=== PATIENT | male | born 1955 | race Caucasian/White ===

== ENCOUNTER 2025-02-06 13:42 | Inpatient (IN) | payer OTHER, SELFPAY ==
[2025-02-03] VITALS (8 sets, daily range): BP systolic 132–142; BP diastolic 65–76
[2025-02-03 13:24] LABS: Hematocrit 47.1 % (39.0-52.0); Hemoglobin 15.7 g/dL (13.0-18.0); Mean Corp Hgb Conc. 33.3 g/dL (33.0-37.0); Mean Corpuscular Volume 86.9 fL (80.0-94.0); Nucleated Red Blood Cells % 0 % (-); Platelet Count 252 10^3/uL (130-400); Red Cell Dist. Width 13.4 % (11.5-14.5)
[2025-02-03 13:43] LABS: ALT (SGPT) 21 U/L (0-50); AST (SGOT) 21 U/L (17-59); Albumin 4.7 g/dl (3.5-5.0); Alkaline Phosphatase 67 U/L (38-126); Blood Urea Nitrogen 14 mg/dl (9-20); Calcium 9.6 mg/dl (8.4-10.2); Carbon Dioxide 27 mmol/L (22-30); Chloride 104 mmol/L (98-107); Glucose 163 mg/dl (70-99); Lipase 43 U/L (23-300); Potassium 5.5 mmol/L (3.5-5.1); Sodium 137 mmol/L (135-145); Total Protein 7.6 g/dl (6.3-8.2); eGFR > 60.00
[2025-02-03 13:51] LABS: Troponin I < 0.012 ng/ml
[2025-02-03] MEDS: TORADOL 15 MG IV (16:43)
--- NOTE | 2025-02-03 19:30 | ED.GENMED ---
History of Present Illness
General
Chief Complaint: Abdominal Symptoms
Source: patient
Time Seen by Provider: 02/03/25 15:32
History of Present Illness
History of Present Illness:
Note:
CHIEF COMPLAINT(S)
Abdominal pain, bloating.
HISTORY OF PRESENT ILLNESS
The patient is a 69-year-old male who presented with abdominal pain and a sensation of bloating that began suddenly this morning. He reports feeling well yesterday. The pain is described as tender, particularly worsened over the left lower quadrant,
with some tenderness in the right lower quadrant as well. The patient reports no blood in stools, nausea, or fever. Upon inquiry, he recalls no recent illness and denies any recent changes in his bowel habits.
The patient reports visiting urgent care earlier but no diagnosis was made. He denies any history of smoking or drug use, with minimal alcohol consumption, specifically a glass of wine every three months. He does not have a regular physician for
medical checkups and refers to a nurse for health maintenance. The patient has a known allergy to penicillin. No prior abdominal surgeries report
PAST MEDICAL AND SURGICAL HISTORY
Allergy to penicillin.
SOCIAL DETERMINANTS AFFECTING HEALTH
The patient mentioned not having a regular healthcare provider and relies on visiting a nurse for health checkups.
ALLERGIES
Penicillin.
REVIEW OF SYSTEMS
- Gastrointestinal: Reports abdominal pain and bloating. No blood in stools, nausea, or fever reported.
- Respiratory: Denies any respiratory symptoms.
- General: No recent illness, denies fever.
PHYSICAL EXAM
General: Alert, no acute distress.
Skin: Warm, dry.
Head: Normocephalic, atraumatic.
Neck: Supple, trachea midline.
Eyes, Ears, Nose, Mouth, and Throat: Oral mucosa moist.
Cardiovascular: Heart regular without murmur, normal peripheral perfusion, no edema.
Respiratory: Respirations are non-labored, lungs clear on auscultation.
Gastrointestinal: Moderate tenderness noted in the left lower quadrant, mild tenderness in the right lower quadrant, abdomen mildly distended, active bowel sounds.
Back: Normal range of motion, normal alignment.
Musculoskeletal: Normal range of motion, normal strength.
Neurological: Alert and oriented to person, place, time, and situation, no focal neurological deficit observed.
Psychiatric: Cooperative, appropriate mood and affect.
PLAN
A computed tomography (CT) scan of the abdomen will be conducted to assess potential causes of abdominal tenderness and distension, with particular concern for conditions such as diverticulitis or appendicitis. An intravenous (IV) line will be
established for imaging preparation. Monitoring of white blood cell count due to the elevated level suggesting infection. The patient was offered medication for pain relief, which he declined at this time but may consider if symptoms worsen.
DIFFERENTIAL DIAGNOSIS
The Differential Diagnosis includes, in no particular order and is not limited to:
1. Diverticulitis
2. Appendicitis
3. Gastroenteritis
4. Inflamed epiploic appendage
5. Intestinal obstruction
6. Colitis
7. Urinary tract infection
8. Inguinal hernia
9. Pancreatitis
10. Irritable bowel syndrome
Disposition:
SUMMARY OF ENCOUNTER
A 69-year-old male patient presented with suspected small bowel obstruction. A CT scan revealed dilated air fluid-filled loops proximal to the bowel obstruction, indicating a relatively high-grade obstruction. The patient initially experienced
relief from pain but reported a recurrence. The decision was made to administer morphine for pain management and IV ondansetron (Zofran) to manage nausea. The case was discussed with the general surgery team.
DISPOSITION
Admit.
ASSESSMENT
Suspected small bowel obstruction.
EMERGENCY TREATMENTS ADMINISTERED
Morphine for pain management and IV ondansetron (Zofran) for nausea.
MANAGEMENT OF THE PATIENTS CARE WAS DISCUSSED WITH
Case discussed with general surgery for further management planning. For operating room
PLAN
Admit the patient for further evaluation and management of the small bowel obstruction. Case discussed with surgery. Will place NG tube. Surgery to take patient to the operating room tonight due to possibility of closed-loop obstruction
INDEPENDENT REVIEW OF LABS AND INTERPRETATION OF TESTS
My independent CT scan interpretation is consistent with the radiology report, showing dilated air fluid-filled loops proximal to the small bowel obstruction, suggesting a high-grade obstruction.
MEDICAL DECISION MAKING
1. Number and Complexity of Problems Addressed: Chronic conditions affecting care include small bowel obstruction.
2. Data:
- Category 1: Independent interpretation of the CT scan results confirmed the suspicion of a high-grade small bowel obstruction.
- Category 3: Discussion of management with general surgery.
3. Risk: Admission for further management of high-grade small bowel obstruction was warranted. Patient will go to the operating room tonight
DIAGNOSIS
Small bowel obstruction (ICD-10: K56.609).
Closed-loop obstruction
Phy Exam
Physical Exam
Physical Exam:
.
Course
Orders/Labs/Results
Orders:
Orders
02/03/25 13:03
Electrocardiogram (*1) Urgent
Reason for Study: Abdominal Pain
EKG- Treatment ONCE
02/03/25 13:13
CMP [Comprehensive Metabolic Panel] Urgent
Complete Blood Count/With Diff Urgent
Lipase Urgent
Troponin I Urgent
02/03/25 15:51
CT Abd/pelvis W Iv Cont Urgent
Comment:
Reason For Exam: Lower abd pain, leukocytosis.
02/03/25 16:32
Ketorolac [Toradol] 15 mg IV NOW STA
02/03/25 19:30
0.9% Sodium Chloride 1000 ml [Nss] 1,000 ml IV BOLUS
Morphine Sulfate 4 mg IV NOW STA
Ondansetron Injectable [Zofran] 4 mg IV NOW STA
02/03/25 19:44
NG Tube [GI tube insertion- Treatment] ONCE
02/03/25 20:18
Lactic Acid Urgent
02/03/25 20:33
Dexamethasone Sod Phosphate [Decadron] 20 mg .ROUTE .[facility]-MED ONE
Fentanyl Citrate/Pf [Sublimaze] 100 mcg .ROUTE .[facility]-MED ONE
Lidocaine 2% Mpf [Xylocaine Mpf 2%] 100 mg .ROUTE .[facility]-MED ONE
Midazolam HCl [Versed] 2 mg .ROUTE .[facility]-MED ONE
Ondansetron Injectable [Zofran] 4 mg .ROUTE .[facility]-MED ONE
Propofol [Diprivan] 20 ml .ROUTE .[facility]-MED
Rocuronium [place] [Rocuronium] 50 mg .ROUTE .[facility]-MED ONE
02/03/25 20:37
Dexamethasone Sod Phosphate [Decadron] 20 mg .ROUTE .[facility]-MED ONE
Ondansetron Injectable [Zofran] 4 mg .ROUTE .[facility]-MED ONE
02/03/25 20:51
Bupivacaine 0.25%Pf/Epinephrin [Sensorcaine-Epi 0.25%-0.0005] 30 ml .ROUTE .[facility]-MED ONE
Abnormal Lab Results
02/03/25
13:13
WBC 14.4 H 10^3/uL
(4.8-10.8)
Absolute Neuts (auto) 12.9 H 10^3/uL
(1.4-6.5)
Absolute Lymphs (auto) 0.8 L 10^3/uL
(1.2-3.4)
Neutrophils % 89.6 H %
(42.2-75.2)
Lymphocytes % 5.7 L %
(20.5-51.1)
Potassium 5.5 H mmol/L
(3.5-5.1)
Glucose 163 H mg/dl
(70-99)
Total Bilirubin 1.4 H mg/dl
(0.2-1.3)
02/03/25 13:13
02/03/25 13:13
Vital Signs
Initial and Last Documented VS:
Initial Vital Signs
Temp Pulse Resp BP Pulse Ox
97.7 F 79 18 141/76 97
02/03/25 12:58 02/03/25 12:58 02/03/25 12:58 02/03/25 12:58 02/03/25 12:58
Last Documented Vital Signs
Temp Pulse Resp BP Pulse Ox
98.6 F 80 16 142/74 98
02/03/25 18:30 02/03/25 18:30 02/03/25 18:30 02/03/25 18:30 02/03/25 19:31
*Pulse Oximetry
SaO2: 98
Oxygen Mode of Delivery: Room air
Patient hypoxic: no
*EKG
Interpreted by ED Provider?: Yes
Interpretation: normal
Rate: normal
Rhythm: sinus
[place]: normal axis
QRS Pattern: normal QRS
Ischemia: no ischemia
*Critical Care Note
Total Time (30-74mins, 75-104mins- exclusive of procedures): 30 minutes
Data Reviewed
Source: patient
Patient Management
Discussion with other providers: Hospitalist and Contact Acid Plant Operator (General surgery)
ED Attending Note
-
Portions of this chart may have been created with voice recognition software.� Occasional wrong word or��sound alike� substitutions may have occurred due to the inherent limitations of voice recognition software.
Discharge Plan
Departure
Patient Disposition: Admit
Date of Disposition: 02/03/25
Time of Disposition: 19:26
Admit to: Med/Surg
Presentation/result/management discussed w/ accepting MD/DO: Hospitalist
Discharge Problem:
SBO (small bowel obstruction)
Prescriptions:
No Action
No Current Medications
0
Referrals:
Rut Segura PA-C [Family Provider, Family Practice]
Interventions
Interventions:
*Risk Screen - Suicide Last Done: 02/03/25 12:58
*Neglect/Abuse Screening Last Done: 02/03/25 12:58
AQ-Fyexur-Ynmbcywdsg Assessment Last Done: 02/03/25 16:15
Discharge Date and Time
Print Language: SERBIAN
[2025-02-03] MEDS: NSS 1000 IV ×2 (19:49→23:54)
[2025-02-03] MEDS: MORPHINE SULFATE 4 MG IV (19:49)
[2025-02-03] MEDS: ZOFRAN 4 MG IV (19:49)
--- NOTE | 2025-02-03 21:03 | CON.GS ---
Consultation
-
Date/Time Consultation Requested: 02/03/2025 730 PM
Date/Time Consultation Performed: 02/03/2025 9 PM
Requesting Provider: ED
Performing Provider: Dr. Jin
Reason for Consultation: Small bowel obstruction
Medical History
-
Chief Complaint: Abdominal pain
History of Present Illness:
This is a 69-year-old male who presents with sudden onset abdominal pain that began earlier today. The patient denies Fever, Chest Pain, Shortness Of Breath, Nausea, Vomiting, changes in urinary and bowel habits, unintentional weight loss. Strong
family history of cancer linked to smoking. No prior surgeries
Past Medical History
Past Medical History: None
Past Surgical History: None
Social History
Tobacco: Non-Smoker
Alcohol: None
Drug: None
Personal:
Living: With Family
Family History
Family History: Reviewed & Not Pertinent
Allergies / Home Medications
Allergy/AdvReac Type Severity Reaction Status Date / Time
Penicillins Allergy Unknown Unknown Verified 02/03/25 13:02
�Medication �Instructions �Recorded �Confirmed �Type
No Meds [No Current Medications] 02/03/25 02/03/25 History
Review of Systems
-
History Source: Patient
All other systems: Negative unless noted
A 10 point review of systems was completed, and was negative except as per HPI.
Physical Exam
Vital Signs
Temp Pulse Resp BP Pulse Ox
98.6 F 80 16 142/74 98
02/03/25 18:30 02/03/25 18:30 02/03/25 18:30 02/03/25 18:30 02/03/25 19:31
Lab Results
02/03/25 13:13
02/03/25 13:13
WBC 14.4 10^3/uL (4.8-10.8) H 02/03/25 13:13
Hgb 15.7 g/dL (13.0-18.0) 02/03/25 13:13
Hct 47.1 % (39.0-52.0) 02/03/25 13:13
Plt Count 252 10^3/uL (130-400) 02/03/25 13:13
Abs Immat Gran (auto) 0.0 10^3/uL (0-0.05) 02/03/25 13:13
Neutrophils % 89.6 % (42.2-75.2) H 02/03/25 13:13
Physical Exam
General: Well Developed
HEENT: Normocephalic
Respiratory: Clear
GI: Soft, Non Distended and Tender
Data Reviewed
-
CT Scan: Image Personally Visualized and interpreted, Report Reviewed by me, Discussed with Physician and Discussed with Patient
Labs: Labs Reviewed by me
Total Time Spent with Patient (in minutes): 45
Assessment / Plan
-
This is a 69-year-old male with no significant past medical or surgical history who presents with a 1 day history of significant abdominal pain CT scan concerning for a closed-loop small bowel obstruction.
Will take the patient to the OR for exploratory laparotomy, lysis of adhesions, possible small bowel resection.
N.p.o., IV fluids, NG tube to low intermittent wall suction
Reports no nausea or vomiting or fever risks/Benefits/Alternatives, expected postoperative course and possible complications (bleeding, infection, injury to surrounding structures, acute/chronic pain) discussed at length. Patient wishes to proceed
with surgery. All questions answered. Consent obtained.
I spent 75 minutes in total for the care of this patient today including direct patient care and counseling, reviewing labs, imaging, coordination of care, as well as documentation.
--- NOTE | 2025-02-03 21:08 | W.SUR.PREOP ---
Pre-Operative Surgical Note
-
I have examined this patient prior to the performance of the scheduled procedure.
The patient's condition is unchanged from the time of the current History and
Physical and the patient is able to undergo the scheduled procedure.
--- NOTE | 2025-02-03 22:30 | W.IMMPOSTOP ---
Surgical Immed Post Op Note
-
Primary Surgeon: Elie Jin MD
Assisting Surgeon: None
Pre-op Diagnosis: Closed-loop bowel obstruction
Post-op Diagnosis: Same
Procedure Performed: Exploratory laparotomy, lysis of adhesions
Anesthesia Type: General
Specimen / Cultures: None
Estimated Blood Loss: 1 cc
Complications: None
Operative Findings: Upper vertical midline 8 cm incision. NG tube confirmed to be in good position. There was an adhesion of the omentum down to the mesentery of the small bowel through which a loop of small bowel had herniated, this was finger
lysed and the bowel was freed. This was extracorporealized and evaluated. Though there was some most slight stricturing at the proximal end there was good peristalsis throughout as well as palpable pulses. We did attempt using a Doppler but a
functional 1 could not be found.
POST OP PLAN:
Imaging: None
Labs: Routine AM
Diet: Continue NPO. Continue NG tube to low intermittent wall suction
Analgesia: Tylenol 650mg q6 Darin, Dilaudid 0.5mg q2h PRN
Neuro/vascular checks: Per unit protocol
AC/AP: Hold Therapeutic AC, Ok for DVT PPx
Activity: Ad Debbie
Wound/Incisions/Drains: Routine
Abx: None
Dispo: RNF
[2025-02-03] MEDS: TORADOL 10 MG IV (23:54)
[2025-02-04] VITALS (8 sets, daily range): BP systolic 110–123; BP diastolic 50–68
--- NOTE | 2025-02-04 00:01 | PTCARENOTE ---
ax3 hr regular lungs clear- abd dsg with small amt of drainage- ng tube to liws- no pain. pt has bowel sounds no flatus .
[2025-02-04] MEDS: TYLENOL PO ×3 (00:45→07:16)
[2025-02-04] MEDS: TORADOL 10 MG IV ×3 (05:15→17:08)
[2025-02-04 06:12] LABS: Hematocrit 42.5 % (39.0-52.0); Hemoglobin 14.4 g/dL (13.0-18.0); Mean Corp Hgb Conc. 33.9 g/dL (33.0-37.0); Mean Corpuscular Volume 85.9 fL (80.0-94.0); Platelet Count 240 10^3/uL (130-400); Red Cell Dist. Width 13.7 % (11.5-14.5)
[2025-02-04 06:47] LABS: Blood Urea Nitrogen 19 mg/dl (9-20); Calcium 8.8 mg/dl (8.4-10.2); Carbon Dioxide 26 mmol/L (22-30); Chloride 106 mmol/L (98-107); Glucose 145 mg/dl (70-99); Potassium 4.9 mmol/L (3.5-5.1); Sodium 136 mmol/L (135-145); eGFR > 60.00
[2025-02-04] MEDS: PROTONIX PO (07:16)
--- NOTE | 2025-02-04 08:40 | W.PN.GS2 ---
Today's Communication / Plan
-
NG tube out, bladder scan
Assessment / Plan
-
This is a 69-year-old male POD #1 status post exploratory laparotomy, lysis of adhesions for a closed-loop bowel obstruction. Doing well, some return of bowel recovery.
NG tube removed however will advance only to sips and chips
Continue IV fluids.
Patient reports not peeing since surgery will, will get a bladder scan.
Will plan on discharging patient on full liquids for a week before advancing to a low residue diet
Time Spent
Total Time Spent with Patient (in minutes): 20
Subjective Data
-
Date of Service: February 04, 2025
Interval Events:
No acute events overnight. Slept well. Pain Controlled. Denies Nausea/Vomiting, +bowel function.
Objective Data
-
Intake and Output
02/03/25 02/04/25 02/05/25
06:59 06:59 06:59
Intake Total 450 / 450
Output Total 200 / 200
Balance 250 / 250
Intake:
Oral fluids 0 / 0
IV fluids (Total) 450 / 450
normosol 50 / 50
Output:
Gastrointestinal tube output ( 200 / 200
Total)
[place] Sump 200 / 200
Vital Signs
Temp Pulse Resp BP Pulse Ox
98.1 F 80 18 123/68 94
02/04/25 07:14 02/04/25 07:14 02/04/25 07:14 02/04/25 07:14 02/04/25 07:14
Lab Results
02/04/25 05:46
02/04/25 05:46
Calcium 8.8 mg/dl (8.4-10.2) 02/04/25 05:46
Total Bilirubin 1.4 mg/dl (0.2-1.3) H 02/03/25 13:13
AST 21 U/L (17-59) 02/03/25 13:13
ALT 21 U/L (0-50) 02/03/25 13:13
Alkaline Phosphatase 67 U/L (38-126) 02/03/25 13:13
Total Protein 7.6 g/dl (6.3-8.2) 02/03/25 13:13
Albumin 4.7 g/dl (3.5-5.0) 02/03/25 13:13
Physical Exam
-
GENERAL/NEURO: Awake, Alert, no distress
CHEST: Unlabored breathing on RA
ABDOMEN: Soft, Non-Tender, Non-Distended, dressing intact. NG tube with clear output removed at bedside
Patient has a rodriguez catheter: No
Patient has a central line: No
[2025-02-04] MEDS: TYLENOL 650 MG PO ×4 (09:39→20:06)
[2025-02-04] MEDS: DILAUDID 0.5 MG IV (09:40)
[2025-02-04] MEDS: NSS 1000 IV (12:43)
[2025-02-04] MEDS: LOVENOX 40 MG SC (17:08)
[2025-02-05] MEDS: TORADOL 10 MG IV ×2 (00:11→06:04)
[2025-02-05] MEDS: TYLENOL 650 MG PO ×5 (00:12→21:33)
[2025-02-05] MEDS: NSS 1000 IV (02:40)
[2025-02-05] MEDS: TYLENOL PO (04:17)
[2025-02-05 07:30] VITALS: BP 125/71
[2025-02-05] MEDS: PROTONIX 40 MG PO (08:27)
[2025-02-05 08:36] LABS: Hematocrit 41.8 % (39.0-52.0); Hemoglobin 13.8 g/dL (13.0-18.0); Mean Corp Hgb Conc. 33.0 g/dL (33.0-37.0); Mean Corpuscular Volume 88.0 fL (80.0-94.0); Platelet Count 215 10^3/uL (130-400); Red Cell Dist. Width 13.7 % (11.5-14.5)
[2025-02-05 09:08] LABS: Blood Urea Nitrogen 29 mg/dl (9-20); Calcium 8.7 mg/dl (8.4-10.2); Carbon Dioxide 26 mmol/L (22-30); Chloride 107 mmol/L (98-107); Glucose 92 mg/dl (70-99); Magnesium 2.3 mg/dl (1.6-2.3); Potassium 4.0 mmol/L (3.5-5.1); Sodium 137 mmol/L (135-145); eGFR > 60.00
[2025-02-05] MEDS: SODIUM PHOSPHATE 260 MEQ IV (10:24)
--- NOTE | 2025-02-05 11:22 | W.PN.GS2 ---
Today's Communication / Plan
-
IV phos
Adv to CLD
DTV
Assessment / Plan
-
This is a 69-year-old male POD #1 status post exploratory laparotomy, lysis of adhesions for a closed-loop bowel obstruction. Doing well, some return of bowel recovery.
Adv to [facility]D
DC IVF when PO intake adequate
If repeat st cath required, will plan for rodriguez placement
Phos replaced
PRN pain meds
Will plan on discharging patient on full liquids for a week before advancing to a low residue diet
Subjective Data
-
Date of Service: February 05, 2025
AFVSS, passing flatus, denies n/.v, ambulating, st cath for urinary retention
Objective Data
-
Intake and Output
02/04/25 02/05/25 02/06/25
06:59 06:59 06:59
Intake Total 450 / 450 0 / 0
Output Total 200 / 200 400 / 400
Balance 250 / 250 -400 / -400
Intake:
Oral fluids 0 / 0 0 / 0
IV fluids (Total) 450 / 450
normosol 50 / 50
Output:
Gastrointestinal tube output ( 200 / 200
Total)
[place] Sump 200 / 200
Urine, Voided 0 / 0
Straight cath output 400 / 400
Vital Signs
Temp Pulse Resp BP Pulse Ox
98.0 F 86 16 125/71 96
02/05/25 07:30 02/05/25 07:30 02/05/25 07:30 02/05/25 07:30 02/05/25 07:30
Lab Results
02/05/25 07:53
02/05/25 07:53
Calcium 8.7 mg/dl (8.4-10.2) 02/05/25 07:53
Phosphorus 2.5 mg/dl (2.5-4.5) 02/05/25 07:53
Magnesium 2.3 mg/dl (1.6-2.3) 02/05/25 07:53
Total Bilirubin 1.4 mg/dl (0.2-1.3) H 02/03/25 13:13
AST 21 U/L (17-59) 02/03/25 13:13
ALT 21 U/L (0-50) 02/03/25 13:13
Alkaline Phosphatase 67 U/L (38-126) 02/03/25 13:13
Total Protein 7.6 g/dl (6.3-8.2) 02/03/25 13:13
Albumin 4.7 g/dl (3.5-5.0) 02/03/25 13:13
Physical Exam
-
Gen: NAD
Abd: soft, approp ttp, incision cdi
Patient has a rodriguez catheter: No
Patient has a central line: No
[2025-02-05 16:30] VITALS: BP 145/78
[2025-02-05] MEDS: LOVENOX 40 MG SC (17:29)
[2025-02-05 23:15] VITALS: BP 150/81
[2025-02-06] MEDS: TYLENOL PO ×3 (00:35→12:00)
[2025-02-06 07:17] LABS: Blood Urea Nitrogen 14 mg/dl (9-20); Calcium 8.6 mg/dl (8.4-10.2); Carbon Dioxide 27 mmol/L (22-30); Chloride 105 mmol/L (98-107); Glucose 91 mg/dl (70-99); Magnesium 2.3 mg/dl (1.6-2.3); Potassium 4.2 mmol/L (3.5-5.1); Sodium 137 mmol/L (135-145); eGFR > 60.00
[2025-02-06 07:46] VITALS: BP 149/86
[2025-02-06] MEDS: TYLENOL 650 MG PO ×2 (09:12→15:08)
[2025-02-06] MEDS: PROTONIX 40 MG PO (09:13)
--- NOTE | 2025-02-06 11:02 | CM ---
Addendum entered by Carol Jordan 02/06/25 14:10:
No plan for rodriguez at discharge. Pt is ambulating in his room, able to provide self care as needed.
Plan: Discharge to home with no identified needs.
Original Note:
Pt admitted with abdominal pain via ED. Exploratory Lap for bowel obstruction; possible need for rodriguez at discharge.
Feroz lives with his in a 1 story home; (I) amb and adls at baseline.
Anticipated discharge plan: home no needs
--- NOTE | 2025-02-06 11:21 | W.PN.GS2 ---
Today's Communication / Plan
-
Adv to fuls
Outpt Uro f/u
Assessment / Plan
-
This is a 69-year-old male POD #3 status post exploratory laparotomy, lysis of adhesions for a closed-loop bowel obstruction. Doing well, following expected course. Hypophos resolved
Adv to fulls
DC IVF
Will defer rodriguez for now, we discussed outpt Urology f/u for likely chronic bladder outlet obstruction
PRN pain meds
Will plan on discharging patient on full liquids for a week before advancing to a low residue diet, poss DC today if tolerates fulls
Subjective Data
-
Date of Service: February 06, 2025
AFVSS, urinary retention requiring st cath overnight, since then has voided several times, deborah cld, denies n/v, passing flatus
Objective Data
-
Intake and Output
02/05/25 02/06/25 02/07/25
06:59 06:59 06:59
Intake Total 0 / 0 480 / 480
Output Total 400 / 400 850 / 850 200 / 200
Balance -400 / -400 -850 / -850 280 / 280
Intake:
Oral fluids 0 / 0 480 / 480
Output:
Urine, Voided 0 / 0 200 / 200
Straight cath output 400 / 400 850 / 850
Other:
Number of approximated SMALL 2
amounts of urine
Number of approximated MODERATE 2
amounts of urine
Vital Signs
Temp Pulse Resp BP Pulse Ox
98.1 F 78 16 149/86 99
02/06/25 07:46 02/06/25 07:46 02/06/25 07:46 02/06/25 07:46 02/06/25 07:46
Lab Results
02/05/25 07:53
02/06/25 06:16
Calcium 8.6 mg/dl (8.4-10.2) 02/06/25 06:16
Phosphorus 3.4 mg/dl (2.5-4.5) 02/06/25 06:16
Magnesium 2.3 mg/dl (1.6-2.3) 02/06/25 06:16
Total Bilirubin 1.4 mg/dl (0.2-1.3) H 02/03/25 13:13
AST 21 U/L (17-59) 02/03/25 13:13
ALT 21 U/L (0-50) 02/03/25 13:13
Alkaline Phosphatase 67 U/L (38-126) 02/03/25 13:13
Total Protein 7.6 g/dl (6.3-8.2) 02/03/25 13:13
Albumin 4.7 g/dl (3.5-5.0) 02/03/25 13:13
Physical Exam
-
Gen: NAD
Abd: soft, minimal ttp, incisions cdi
Patient has a rodriguez catheter: No
Patient has a central line: No
--- NOTE | 2025-02-06 14:24 | PTCARENOTE ---
Patient to be on a Full liquid diet for one week per surgeon. Full liquid diet reviewed with patient, patient verbalized understanding.
--- NOTE | 2025-02-06 14:56 | PTCARENOTE ---
Patient OOB ambulating with a steady gait. Patient is passing gas, tolerating full liquid diet ans had a small BM. Physician made aware.
[2025-02-06 15:36] VITALS: BP 129/77
--- NOTE | 2025-02-06 16:01 | W.DS.TRANS ---
Addendum entered and electronically signed by PAUL Solo 02/07/25 13:18:
dictated #[id number]
Original Note:
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
-
Discharge Instructions:
Discharge Diagnosis/Procedures Exploratory laparotomy, lysis of adhesions
Diet Other diet
Additional Diets Full liquids (anything you can pour), gradually
introduce softer foods next week and go from
there. Call the office if any questions. Go slow
.
Bathing Restrictions OK to Shower
Wound Care Allow skin glue to flake off on its own
Instructions: Small bowel obstruction (DC)
Stand-Alone Forms:
Changes to Home Medications: No
Discharge Medications:
DC Medications w/original date entered in [facility]
No Meds [No Current Medications] 02/03/25
Home Medication Changes
Pending Results: No
--- NOTE | 2025-02-07 12:00 | OR.RPT ---
Operative Report
Operative Report
Patient Name: Feroz Serrano
: 1955
Date of Operation: 02/03/2025
Preoperative Diagnosis: Closed-loop bowel obstruction
Postoperative Diagnosis: Same
Procedure(s):
1. Exploratory laparotomy, lysis of adhesions
Surgeon(s):
Dr. Jin
Back Tender Cloth Printing(s):
None
Anesthesia: General
Estimated Blood Loss: 1 cc
Urine Output: See anesthesia records
Drains/Lines/Implants: None
Specimens: None
Indication for surgery:
This is a 69-year-old male with no significant abdominal surgical history who presented to our hospital with sudden onset abdominal pain. CT scan was concerning for a closed-loop bowel obstruction so after discussion of risk benefits alternatives
and obtained consent he was taken urgently to the OR for exploration.
Operative Findings: Upper vertical midline 8 cm incision. NG tube confirmed to be in good position. There was an adhesion of the omentum down to the mesentery of the small bowel through which a loop of small bowel had herniated, this was finger
lysed and the bowel was freed. This was extra-corporealized and evaluated. Though there was some most slight stricturing at the proximal end there was good peristalsis throughout as well as palpable pulses. We did attempt using a Doppler but a
functional 1 could not be found.
Details of the operation:
The patient was brought to the operating room and positioned supine on the operating table. General anesthesia was induced, followed by successful endotracheal intubation. The abdomen was prepped and draped in the usual fashion. After performing a
time out, an upper vertical midline 8 cm incision was made and the small bowel was explored, there was adhesion in the omentum through which a loop of bowel had been incarcerated, this was lysed freeing the bowel which was extracorporealized. It
was hemorrhagic and the viability was initially somewhat suspect. While attempting to find a Doppler, I wrapped the loop of bowel which was likely mid jejunum and warm saline sponge for running the rest of the bowel which was unremarkable. There
were no other significant adhesions in the abdomen. The first Doppler device that we had was not functional and neither was a second. Thankfully however by this point the bowel had pinked up and there were now very palpable, even visible pulses in
the mesentery of the small bowel. While he had some concern for possible stricture on the proximal portion of the bowel, the lumen appeared still quite patent so I elected not to perform a small bowel resection. The NG tube was confirmed to be in
a good position. Satisfied, we closed our fascia using 0 PDS suture anchored at each apex and run towards the middle with 0.5 cm bites and 0.5 cm advancement where they were tied together. The skin was closed with 3-0 Vicryl sutures and covered
with an Aquacel dressing. All counts were correct at the end of procedure. The patient tolerated the procedure well. They were extubated and taken to the recovery area for hemodynamic monitoring.
I was the attending physician and performed the procedure with no assistance. I was present for all portions of the case
Elie Jin MD
== END 2025-02-06 17:56 | disposition home or self-care (01) | DRG 337 ==
LOC: 3 WEST ACU 13:42
PROVIDERS: Physician Assistant; ADMITTING PHYSICIAN Surgery; ATTENDING PHYSICIAN Surgery; EMERGENCY PHYSICIAN Emergency Medicine; FAMILY PHYSICIAN Physician Assistant Medical
PROC: 0DN80ZZ Release Small Intestine, Open Approach (ICD-10-PCS; 2025-02-03)
DX: K56.52 Intestinal adhesions [bands] with complete obstruction (principal); E83.39 Other disorders of phosphorus metabolism; R33.8 Other retention of urine; Z88.0 Allergy status to penicillin; D72.829 Elevated white blood cell count, unspecified
CPT/HCPCS: 74177; 80048; 80053; 83605; 83690; 83735; 84100; 84484; 85025; 85027; 93005; 96374; 96375; 99291; Q9967